=== PATIENT | female | born 1990 | race African-American/Black ===

== ENCOUNTER 2019-04-18 13:36 | Outpatient (RCR) | payer OTHER, SELFPAY ==
--- NOTE | 2019-04-18 14:50 | PTOPEVAL ---
PHYSICAL THERAPY EVALUATION AND PLAN OF CARE Thank you for referring this patient to [facility]. Heather will be seen in PT 1-2x/week for 5 weeks to address left knee pain and subsequent dysfunction. Please review, sign, date and return this plan of care ANI. I agree with and certify that the following plan of care is medically necessary. Referring Physician Date Attending Provider: SHAD,RAYMOND KITMAN Evaluation Diagnosis left knee pain; left plantar fasciitis Onset 2018 Subjective Information Patient reports that she has Query Text:As Reported By Patient/ left knee pain starting after Family surgery for plantar fasciitis (initially did cortisone injections, PT, splints/braces , stretches) in 10/2017 and was in a boot for 3 months. 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 Started taking non- steroidal anti-inflammatory that seems to be helping. Her left foot seems to do ok unless on her feet for extended periods of time. Tennis shoes with orthotics are more comfortable than others. Pain Assessment Left Knee Reported Pain Level 3 Pain Description Sharp,Tender on Palpation Pain Frequency Chronic,Intermittent Current Pain Intensity 3 Lowest Pain Intensity 1 Greatest Pain Intensity 8 Pain Aggravating Factors Prolonged Position,Sitting, Weight Bearing/Standing Other Pain Aggravating Factors prolonged sitting followed by standing/walking Pain Behaviors None Pain Relief Interventions Used By Heat,Medication Patient Hip Strength Left Hip Flexion Strength 4+ Good + Hip Extension Strength 4- Good - Hip Abduction Strength 5 Normal Knee Strength Left Knee Flexion Strength 4+ Good + Knee Extension Strength 4+ Good + Ankle Strength Left Ankle Strength Comments unilateral heel raises: left = 0/20 right = 2/20 Muscle Length Testing Left Hamstring Length -40 Right Hamstring Length -25 Palpation Assessment Palpation significant trigger points throughout
--- NOTE | 2019-04-27 13:55 | PCPTNOTE ---
Patient called & cancelled scheduled appointment this date due to having a sick child.
--- NOTE | 2019-05-04 13:45 | PCPTNOTE ---
Patient did not show up for scheduled appointment this date.
--- NOTE | 2019-05-11 15:38 | PCPTNOTE ---
Patient did not show up for scheduled appointment this date. Called & left a message.
--- NOTE | 2019-05-18 13:36 | PCPTNOTE ---
Patient called & cancelled scheduled appointment this date due to having a sock child.
--- NOTE | 2019-05-30 08:45 | PCPTNOTE ---
PHYSICAL THERAPY DISCHARGE NOTE Patient:Heather Reyes Date of :1990 Patient has not returned for any further treatments since 04/18/2019, therefore she will be discharged from therapy at this time. She attended no follow-up visits after evaluation. The goals have not been assessed. Thank you for referring this patient to [facility]. Please review, sign, date and return this discharge summary ANI. I have been updated about the patient's current status and I agree with discharge from the above service at this time. Referring Physician Date
== END 2019-05-30 13:55 | disposition home or self-care (01) ==
LOC: ANHPT 13:36
PROVIDERS: PCP Nurse Practitioner Family; Visit Provider Nurse Practitioner Family
DX: M25.569 Pain in unspecified knee (principal); M72.2 Plantar fascial fibromatosis
CPT/HCPCS: 97161

== ENCOUNTER 2020-01-24 13:52 | Outpatient (CLI) | payer OTHER, SELFPAY ==
--- NOTE | ~2020-01-24 | US_ITS ---
EXAMINATION: US breast LT limited HISTORY: Palpable lump in the upper outer quadrant of the left breast TECHNIQUE: Limited left breast ultrasound is performed in the upper outer quadrant FINDINGS: There is no evidence of focal abnormal cystic or solid mass in the vicinity of the reported palpable abnormality of concern. IMPRESSION: No specific sonographic correlate is identified for the reported palpable abnormality of concern. Fur ther evaluation at this time should be based on clinical assessment. Continued follow-up physical exa mination is recommended. BI-RADS Category 1: Negative Reviewed, dictated and finalized at location A. [facility] NURSE ONCOLOGY IMPRESSION: No specific sonographic correlate is identified for the reported palpable abnor mality of concern. Further evaluation at this time should be based on clinical assessment. Continued follow-up physical examination is recommended. BI-RADS Category 1: Negative
== END 2020-01-24 13:53 | disposition home or self-care (01) ==
LOC: ANHIMG 13:56
PROVIDERS: PCP Nurse Practitioner Family; Visit Provider Nurse Practitioner Obstetrics & Gynecology
DX: N63.20 Unspecified lump in the left breast, unspecified quadrant (principal)
CPT/HCPCS: 76642

== ENCOUNTER 2020-02-05 11:50 | Emergency (ER) | payer OTHER, SELFPAY ==
[2020-02-05 12:03] VITALS: BP 134/75; PULSE 79; RESP 18; TEMP 36.3; O2SAT 100
--- NOTE | 2020-02-05 12:34 | ED.FEMALEGU ---
HPI - Female Genitourinary General Chief complaint: Urogenital-Female Stated complaint: hematuria, pelvic pain Time Seen by Provider: 02/05/20 12:28 History of Present Illness HPI Narrative: Hematuria, dysuria, urinary frequency and lower abdominal pain since this morning. She has not tried anything for her symptoms. No fever, chills, flank pain, vaginal bleeding, discharge Related Data Allergies Allergy/AdvReac Type Severity Reaction Status Date / Time No Known Allergies Allergy Unverified 07/15/18 17:30 Review of Systems Review of Systems: All systems reviewed & are unremarkable except as noted in HPI and below Cardiovascular: Cardiovascular: Denies chest pain Respiratory: Respiratory: Denies cough and Denies dyspnea Gastrointestinal: Gastrointestinal: Denies nausea and Denies vomiting Musculoskeletal: Musculoskeletal: Denies back pain [facility] Past Medical History Medical History Healthy adult Social History Social History Smoking status: Never smoker Gender identity (if verbalized by the patient): Female Exam Const: General: healthy appearing, no acute distress and alert Orientation/consciousness: patient oriented x3 HENMT: Head: normal to inspection Neck: Neck: normal visual inspection and no lymphadenopathy Chest: Chest palpation & inspection: no tenderness Resp: Effort & Inspection: normal respiratory effort Auscultation: clear to auscultation bilaterally, no rales, no rhonchi and no wheezes Cardio: Jugular venous distension: no JVD Rate: regular rate Rhythm: regular rhythm Heart sounds: no murmurs GI: Inspection: non-distended GI Palp: Yes Soft to palpation and Yes Tenderness to palpation present (GI) (mild suprapubic) Skin: General skin exam: normal color Neuro: General: patient oriented x3 and moves all extremities Speech: normal speech Extrem: General: no edema Psych: Appearance: well kempt Affect: normal affect Course Vital Signs Vital signs: Vital Signs Temperature 36.3 C L 02/05/20 12:03 Pulse Rate 79 02/05/20 12:03 Respiratory Rate 18 02/05/20 12:03 Blood Pressure 134/75 02/05/20 12:03 Pulse Oximetry 100 02/05/20 12:03 Temperature 36.3 C L 02/05/20 12:03 Pulse Rate 79 02/05/20 12:03 Respiratory Rate 18 02/05/20 12:03 Blood Pressure 134/75 02/05/20 12:03 Pulse Oximetry 100 02/05/20 12:03 MDM - Female Genitourinary MDM Narrative Medical decision making narrative: Symptoms and UA suggest UTI. Lab Data Attestation: I reviewed the patient's lab results. Labs: Lab Results 02/05/20 Range/Units 12:11 Urine Color Red H (Yellow) Urine Appearance Turbid H (Clear) Urine pH 6.0 (5.0-9.0) Ur Specific [place] 1.033 (1.001-1.035) Urine Protein 3+ H (Negative) mg/dL Urine Glucose (UA) Negative (Negative) mg/dL Urine Ketones Negative (Negative) mg/dL Ur Blood (Man) 3+ H (Negative) Urine Nitrate Negative (Negative) Urine Bilirubin Negative (Negative) Urine Urobilinogen Negative (<2.0) mg/dL Leukocyte Esterase Rfl 2+ H (Negative) NBA/UL Urine RBC >75 H (0-2) /hpf Urine WBC >75 H /hpf Ur Squamous Epith Cells Many H (Few) /hpf Urine Bacteria Trace /hpf Urine Mucus Heavy H /lpf UCG Bedside Result Negative Reference Range: Negative Discharge Plan Discharge Clinical Impression: Urinary tract infection Qualifiers: Urinary tract infection type: acute cystitis Hematuria presence: with hematuria Qualified Code(s): N30.01 - Acute cystitis with hematuria Patient Disposition: Home, Self-Care Condition: Stable Instructions: Antibiotic Form, Urinary Tract Infection in Women (ED) Prescriptions: New nitrofurantoin monohyd/m-cryst [Macrobid] 100 mg capsule 100 mg PO Q12H 5 Days Qty: 10 RF: 0
[2020-02-05 12:57] LABS: Add Urine Microscopic? YES; Appearance Urine Turbid (Clear); Bacteria Urine Trace /hpf; Bilirubin Urine Negative (Negative); Blood Urine 3+ (Negative); Color Urine Red (Yellow); Glucose Urine UA Negative (Negative); Ketones Urine Negative (Negative); Leukocyte Esterase Ur 2+ LEU/UL (Negative); Mucus Urine Heavy /lpf; Nitrate Urine Negative (Negative); Protein Urine 3+ mg/dL (Negative); RBC Urine >75 /hpf (0-2); Squamous Epithelial Cell Urine Many /hpf (Few); Urobilinogen Urine Negative mg/dL (<2.0); WBC Urine >75 /hpf
[2020-02-05 12:58] LABS: Specific Grav Ur 1.033 (1.001-1.035)
[2020-02-05] MEDS: PHENAZOPYRIDINE HCL 100 MG TABLET 200 MG PO (13:22)
[2020-02-05] MEDS: NITROFURANTOIN MONOHYD MACROCR 100 MG CAP PO (13:22)
== END 2020-02-05 13:15 | disposition home or self-care (01) ==
PROVIDERS: Emergency Provider Emergency Medicine; PCP Nurse Practitioner Family
DX: N30.01 Acute cystitis with hematuria (principal)
CPT/HCPCS: 81001; 81025; 87077; 87086; 87088; 87186; 99283; A9270

== ENCOUNTER 2022-10-09 13:58 | Emergency (ER) | payer OTHER, SELFPAY ==
--- NOTE | ~2022-10-09 | XR_ITS ---
EXAMINATION: XR shoulder RT min 2V INDICATION: Right shoulder pain TECHNIQUE: Four views of the right shoulder are submitted. COMPARISON: 11/21/2005 FINDINGS: Normal alignment. No fracture. Glenohumeral and acromioclavicular joint spaces are normal. Soft tissues are unremarkable. IMPRESSION: 1. No acute osseous abnormality. Reviewed, dictated and finalized at location F.
[2022-10-09 15:29] VITALS: BP 130/81; PULSE 63; RESP 16; TEMP 36.4; O2SAT 100
--- NOTE | 2022-10-09 17:36 | ED.UPPEXIN ---
HPI - Extremity Injury (Upper) General Chief Complaint: Extremity Injury, Upper Stated Complaint: right shoulder pain Time Seen by Provider: 10/09/22 16:20 Source: patient Mode of arrival: ambulatory Limitations: no limitations History of Present Illness HPI narrative: This is a 32 year old female that presents to the ER for right shoulder pain. Ongoing over the last week. No known injury or trauma. Although does report she has to do some lifting at work. Reports the pain is worse with movement and relieved with rest. Reports the pain radiated into her neck. Denies fever, erythema or edema. Related Data Allergies Allergy/AdvReac Type Severity Reaction Status Date / Time No Known Allergies Allergy Unverified 10/09/22 13:58 Review of Systems Review of Systems: CONSTITUTIONAL: Denies fever SKIN: Denies rash MUSCULOSKELETAL: Reports joint pain, and myalgia. NEUROLOGIC: Denies numbness, or weakness. All systems reviewed & are unremarkable except as noted in HPI and below PMFSH Past Medical History Medical History Healthy adult Social History Social History Smoking status: Never smoker Gender identity (if verbalized by the patient): Female Exam Narrative: GENERAL: Well-appearing, well-nourished, and in no acute distress. HEAD: Normocephalic, atraumatic. EYES: EOMI. NECK: Supple. No adenopathy or masses. Tender to palpation of right trapezius musculature CHEST: Clear to auscultation. No respiratory distress. No wheezes rales or rhonchi HEART: Regular rate and rhythm. No murmur heard. Normal peripheral pulses. EXTREMITIES: Normal range of motion. No edema. Strength equal in bilateral upper extremities (5/5) SKIN: Warm, dry, no rash. NEURO: No focal deficits. Alert and oriented x3. PSYCH: Normal mood and affect Course Course Emergency Course: Patient updated on workup and agrees with plan of care Vital Signs Vital signs: Vital Signs Temperature 97.6 F 10/09/22 15:29 Pulse Rate 63 10/09/22 15:29 Respiratory Rate 16 10/09/22 15:29 Blood Pressure 130/81 10/09/22 15:29 Pulse Oximetry 100 10/09/22 15:29 Oxygen Delivery Room Air 08/03/23 15:29 Temperature 97.6 F 10/09/22 15:29 Pulse Rate 63 10/09/22 15:29 Respiratory Rate 16 10/09/22 15:29 Blood Pressure 130/81 10/09/22 15:29 Pulse Oximetry 100 10/09/22 15:29 Oxygen Delivery Room Air 10/09/22 15:29 MDM - Extremity Injury (Upper) MDM Narrative Medical decision making narrative: Patient presents to the ER for right shoulder pain ongoing over the last week. No known injury or trauma. She is neurovascularly intact. Right shoulder x-rays without acute osseous abnormalities. Patient tender to palpation of the right trapezius musculature. Instructed on care of muscle strain. She is to follow-up with primary provider. She was given warnings to return to the ER Differential Diagnosis Differential diagnosis: Likely dislocation of shoulder and other (shoulder sprain, muscle strain) Imaging Data Radiologist's impression: ITS Impressions Shoulder X-Ray 10/09/22 16:16 IMPRESSION: 1. No acute osseous abnormality. Critical Care Time Critical Care Time Critical Care Time: No Discharge Plan Discharge Clinical Impression: Acute pain of right shoulder Patient Disposition: Home, Self-Care Condition: Stable Instructions: Muscle Strain (ED) Additional Instructions: Return to the ER if you experience weakness, numbness, redness and swelling of your arm, or any other symptoms that are concerning to you Rest, use ice/heat, take anti-inflammatories (Aleve, Ibuprofen, Naproxen, etc) or Tylenol as needed for pain as well as muscle relaxer (Flexeril) as needed for pain. Muscle relaxers can make you drowsy, do not drive if you take this Follow up with your primary care doctor
== END 2022-10-09 18:07 | disposition home or self-care (01) ==
PROVIDERS: Emergency Provider Physician Assistant; PCP Nurse Practitioner Family
DX: M25.511 Pain in right shoulder (principal)
CPT/HCPCS: 73030; 99283